=== PATIENT | male | born 1965 | race Caucasian/White ===

== ENCOUNTER 2017-12-16 19:06 | Emergency (ER) | payer SELFPAY ==
--- NOTE | 2017-12-16 20:14 | ER Document Report ---
ED Medical Screen (RME) - General Chief Complaint: Skin Problem Stated Complaint: FACE INJURY Time Seen by Provider: 12/16/17 20:11 Mode of Arrival: Ambulatory Information source: Patient Notes: 52-year-old male presents to ED for blade to the right side of his face. He states that this started bleeding Sunday in the shower and it stopped and then today about 3 PM he started bleeding again and has not stopped bleeding since then. It is freely bleeding at this time. I have placed bacitracin and a pressure dressing on it. I have ordered labs for this. He states he does not have any past medical history that his doctor told him that he should take one aspirin a day due to his age. He states he takes an aspirin a day. I have greeted and performed a rapid initial assessment of this patient. A comprehensive ED assessment and evaluation of the patient, analysis of test results and completion of medical decision making process will be conducted by an additional ED providers. Physical Exam - Vital signs Vitals: Temp Pulse Resp BP Pulse Ox 98.1 F 64 12 151/100 H 98 12/16/17 19:28 12/16/17 19:28 12/16/17 19:28 12/16/17 19:28 12/16/17 19:28 Course - Vital Signs Vital signs: Temp Pulse Resp BP Pulse Ox 98.1 F 64 12 151/100 H 98 12/16/17 19:28 12/16/17 19:28 12/16/17 19:28 12/16/17 19:28 12/16/17 19:28
[2017-12-16 20:37] LABS: ABSOLUTE EOSINOPHILS # (AUTO) 0.2 10^3/uL (0.0-0.6); ABSOLUTE LYMPHOCYTES (AUTO) 1.9 10^3/uL (0.5-4.7); ABSOLUTE MONOCYTES (AUTO) 0.6 10^3/uL (0.1-1.4); ABSOLUTE NEUT (AUTO) 3.4 10^3/uL (1.7-8.2); BASOPHILS % (AUTO) 0.5 % (0-2); EOSINOPHILS % (AUTO) 2.9 % (0-6); HEMATOCRIT 43.3 % (37.9-51.0); HEMOGLOBIN 14.6 g/dL (13.5-17.0); LYMPHOCYTES % (AUTO) 31.5 % (13-45); MEAN CORPUSCULAR HEMOGLOBIN 29.9 pg (27.0-33.4); MEAN CORPUSCULAR HGB CONC 33.7 g/dL (32.0-36.0); MEAN CORPUSCULAR VOLUME 89 fl (80-97); MONOCYTES % (AUTO) 9.3 % (3-13); PLATELET COUNT 166 10^3/uL (150-450); RED BLOOD COUNT 4.87 10^6/uL (4.35-5.55); RED CELL DISTRIBUTION WIDTH 12.7 % (11.5-14.0); SEGMENTED NEUTROPHILS % (AUTO) 55.8 % (42-78); TOTAL CELLS COUNTED % (AUTO) 100 %
[2017-12-16] MEDS ORDERED: LIDOCAINE 1%/EPINEPHRINE INJ 20 ML VIAL INJ ONE (21:08)
[2017-12-16 21:29] LABS: PROTHROMBIN TIME 12.8 SEC (11.4-15.4)
[2017-12-16 21:30] LABS: PARTIAL THROMBOPLASTIN TIME 29.8 SEC (23.5-35.8)
--- NOTE | 2017-12-16 21:32 | ER Document Report ---
ED General - General Chief Complaint: Skin Problem Stated Complaint: FACE INJURY Time Seen by Provider: 12/16/17 20:11 Mode of Arrival: Ambulatory Notes: Patient is a 52-year-old male without past medical history, takes a daily aspirin who presents with bleeding from the right side of his face. The patient states that he got a shower today, noticed a stream of blood running down his right side of his face. States that he was unable to identify the source of bleeding. He states he applied direct pressure for over 1 hour and could not do the bleeding stopped so he came to the emergency department. He denies any history of the same. Denies any history of coagulopathies. No trauma to the area. He denies any pain, headache or infectious symptoms. He has not seen his primary care doctor regarding today's concerns. He has not done anything seems to improve or worsen his symptoms. - HPI Onset: Just prior to arrival Onset/Duration: Sudden Quality of pain: No pain Severity: None Pain Level: Denies Associated symptoms: None Exacerbated by: Denies Relieved by: Denies Similar symptoms previously: No Recently seen / treated by doctor: No Past Medical History - General Information source: Patient - Social History Smoking Status: Never Smoker Chew tobacco use (# tins/day): No Frequency of alcohol use: Occasional Drug Abuse: None Lives with: Spouse/Significant other Family History: Reviewed & Not Pertinent Patient has suicidal ideation: No Patient has homicidal ideation: No Renal/ Medical History: Denies: Hx Peritoneal Dialysis Review of Systems - Review of Systems Notes: Constitutional: Negative for fever. HENT: Negative for sore throat. Eyes: Negative for visual changes. Cardiovascular: Negative for chest pain. Respiratory: Negative for shortness of breath. Gastrointestinal: Negative for abdominal pain, vomiting or diarrhea. Genitourinary: Negative for dysuria. Musculoskeletal: Negative for back pain. Skin: Positive for right facial abrasion Neurological: Negative for headaches, weakness or numbness. 10 point ROS negative except as marked above and in HPI. Physical Exam - Vital signs Vitals: Temp Pulse Resp BP Pulse Ox 98.1 F 64 12 151/100 H 98 12/16/17 19:28 12/16/17 19:28 12/16/17 19:28 12/16/17 19:28 12/16/17 19:28 Interpretation: Hypertensive Notes: PHYSICAL EXAMINATION: GENERAL: Well-appearing, well-nourished and in no acute distress. HEAD: Atraumatic, normocephalic. EYES: Pupils equal round and reactive to light, extraocular movements intact, sclera anicteric, conjunctiva are normal. ENT: nares patent, oropharynx clear without exudates. Moist mucous membranes. NECK: Normal range of motion, supple without lymphadenopathy LUNGS: Breath sounds clear to auscultation bilaterally and equal. No wheezes rales or rhonchi. HEART: Regular rate and rhythm without murmurs ABDOMEN: Soft, nontender, normoactive bowel sounds. No guarding, no rebound. No masses appreciated. EXTREMITIES: Normal range of motion, no pitting or edema. No cyanosis. NEUROLOGICAL: No focal neurological deficits. Moves all extremities spontaneously and on command. PSYCH: Normal mood, normal affect. SKIN: Warm, Dry, normal turgor, there is a small punctate lesion in the right central cheek that is actively bleeding Course - Re-evaluation Re-evalutation: 12/16/17 21:30 Patient presents with a small, punctate laceration of the right cheek that would not stop bleeding at home. Although that is a very small amount of bleeding given the size of the small wound, it is a rapid bleed that has not been controlled with direct pressure or topical thrombin gauze here in the emergency department. I did therefore inject lidocaine with 1% epinephrine into the affected area which did improve the rate of bleeding and then have reapplied a thrombin gauze and having the patient applied direct pressure. Will recheck momentarily. CBC unremarkable, PT and PTT are within acceptable limits. Patient does take aspirin daily and anticipate that this is the primary cause of his current excessive bleeding from a small wound. 12/16/17 22:01 Wound has had bleeding control at this time. At this time will discharge with return precautions and follow-up recommendations. Verbal discharge instructions given a the bedside and opportunity for questions given. Medication warnings reviewed. Patient is in agreement with this plan and has verbalized understanding of return precautions and the need for primary care follow-up in the next 24-72 hours. - Vital Signs Vital signs: Temp Pulse Resp BP Pulse Ox 98.0 F 68 12 148/98 H 99 12/16/17 22:13 12/16/17 22:13 12/16/17 22:13 12/16/17 22:13 12/16/17 22:13 - Laboratory Result Diagrams: 12/16/17 20:15 Discharge - Discharge Clinical Impression: Bleeding Facial abrasion Qualifiers: Encounter type: initial encounter Qualified Code(s): S00.81XA - Abrasion of other part of head, initial encounter Condition: Good Disposition: HOME, SELF-CARE Additional Instructions: Do not take aspirin for the next 1 week. You may then restart your normal aspirin therapy. Return if you have recurrence of the bleeding that is not controlled with direct pressure, lightheadedness, or any other symptoms that are worrisome to you.
[2017-12-16 22:14] VITALS: BP 148/98
== END 2017-12-16 22:14 | disposition home or self-care (01) ==
LOC: ER 19:06
DX: S00.81XA Abrasion of other part of head, initial encounter (principal); S01.532A Puncture wound without foreign body of oral cavity, initial encounter; X58.XXXA Exposure to other specified factors, initial encounter; Z79.82 Long term (current) use of aspirin
CPT/HCPCS: 99283; 36415; 85025; 85610; 85730; J3490